=== PATIENT | female | born 1955 | race Caucasian/White ===

== ENCOUNTER 2025-07-10 08:59 | Inpatient (IN) ==
--- NOTE | 2025-07-03 13:16 | Anesthesiology Consultation ---
Date of Service July 03, 2025 Assessment & Plan (1) Encounter for pre-operative examination: - Check BSG DOS - Infectious disease screening: Per assessment on 07/03/25- No known recent infectious disease contacts or current infectious disease symptoms. Chart Review Chart Review: Acceptable Risk for Surgery and Patient NOT seen in Pre Admission Testing History Surgery Operation Date: 07/10/25 08:00 Proposed Procedures p Right Transcarotid Artery Revascularization - Bebeto Foote MD Height/Weight Height: 5 ft 6 in Weight: 97.522 kg Allergies Allergy/AdvReac Type Severity Reaction Status Date / Time pollen extracts Allergy Unknown Sneezing Verified 07/03/25 12:03 No Known Drug Allergies Allergy Verified 07/03/25 12:03 Medications Home Medications Medication Instructions Recorded Confirmed Last Taken multivitamin (Daily Multiple 1 tab PO QAM 05/04/19 07/03/25 07/21/22 tablet) aspirin 81 mg tablet 81 mg PO HS 07/13/19 07/03/25 07/21/22 loratadine 10 mg tablet (Claritin) 10 mg PO DAILY PRN allergy 01/22/22 07/03/25 Unknown symptoms #90 tabs hydrocodone 5 mg-acetaminophen 325 1 tab PO TID PRN Pain 09/30/22 07/03/25 Unknown mg tablet fluticasone propionate 50 2 spray intranasal DAILY PRN 03/23/23 07/03/25 Unknown mcg/actuation nasal allergy symptoms #16 grams spray,suspension albuterol sulfate 90 mcg/actuation 1 puff inhalation .COMPLEX PRN 01/30/25 07/03/25 Unknown aerosol inhaler shortness of breath #18 grams sennosides 8.6 mg tablet (senna) 8.6 mg PO BID #60 tabs 01/30/25 07/03/25 Unknown simvastatin 20 mg tablet 20 mg PO HS #90 tabs 02/07/25 07/03/25 Unknown gabapentin 300 mg capsule 300 mg PO HS #90 caps 03/05/25 07/03/25 Unknown docusate sodium 100 mg capsule 100 mg PO BID #60 caps 05/28/25 07/03/25 Unknown (Colace) lisinopril 20 mg tablet 20 mg PO HS #90 tabs 06/18/25 07/03/25 Unknown clopidogrel 75 mg tablet (Plavix) 75 mg PO QAM 07/03/25 07/03/25 Unknown cyanocobalamin (vitamin B-12) 500 500 mcg PO QAM 07/03/25 07/03/25 Unknown mcg tablet (Vitamin B-12) fluticasone propionate 100 1 inh inhalation BID 07/03/25 07/03/25 Unknown mcg/actuation blister powder for inhalation primidone 50 mg tablet 100 mg PO BID essential tremors 07/03/25 07/03/25 Unknown vibegron 75 mg tablet (Gemtesa) 75 mg PO 1500 07/03/25 07/03/25 Unknown Past Medical History Medical History Anxiety Asthma "Well controlled" Benign essential tremor Carotid artery stenosis Chronic back pain Fibromyalgia Generalized arthritis Glaucoma No medications History of restless legs syndrome No current issues Hx of gastric ulcer (2021) Hx of irritable bowel syndrome "Resolved" No recent issues Hyperlipidemia Hypertension Nocturia Osteoarthritis Polycythemia Per records Pre-diabetes Prediabetes vs borderline DM per records Most recent A1C 6.2% 01/2025 Sleep apnea CPAP ("I do not wear is like I should") Urge and stress incontinence Past Family History Family History Father Cardiac disorder Myocardial infarction Hypertension Sister Ovarian cancer Breast cancer Brother Diabetes Arthritis Cardiac disorder Myocardial infarction Hypertension Mother Diabetes Kidney disease Breast cancer Sister Diabetes Sister Bladder cancer Brother Bile duct cancer Brother , d/t COVID Nov 2020 Dementia Brother Coronary heart disease S/P CABG (coronary artery bypass graft) Other Bladder carcinoma No family history of adverse response to anesthesia Past Surgical History Surgical History H/O esophagogastroduodenoscopy Hx of colonoscopy S/P epidural steroid injection Status post cholecystectomy Status post surgery Bile duct stone removal Status post tubal ligation Social History Smoking Status: Current every day smoker tobacco type: cigarettes Smoking cigarettes per day: 1 PPD (advised on policy) Do You Dip or Chew Tobacco: No Hx Alcohol Use: No Hx Substance Use: No substance use type: does not use Lab Results Anesthesia Preop Results Results Anesthesia Widget: WBC 6.36 K/ul (4.8-10.8) 06/20/25 Hgb 16.1 g/dl (12.0-16.0) H 06/20/25 Hct 47.5 % (37.0-47.0) H 06/20/25 Plt 171 K/uL (130-400) 06/20/25 Na 140 mmol/L (136-145) 06/20/25 K 4.2 mmol/L (3.5-5.1) 06/20/25 Cl 107 mmol/L (98-107) 06/20/25 CO2 28 mmol/L (21-32) 06/20/25 BUN 10 mg/dl (6-23) 06/20/25 Creat 0.67 mg/dl (0.6-1.2) 06/20/25 Glucose Level 108 mg/dl (70-99(Fasting)) H 06/20/25 Blood Type A Positive 06/20/25 Antibody Screen NEGATIVE 06/20/25 Testing Electrocardiogram Date: 06/20/25 NSR at 73bpm. "Normal ECG" Chest X-Ray Date: 06/20/25 Findings: + NAD Other Testing Neck CTA Date: 05/22/25 IMPRESSION: Motion limited exam. 1. 90% narrowing proximal right ICA. 2. Less than 50% narrowing proximal left ICA. 3. Left submandibular finding, likely enlarged lymph node. At a minimum, suggest follow-up focused ultrasound for further characterization. If there is history of primary malignancy, further workup could be considered as clinically indicated. (Finding forwarded/flagged to ordering provider/Dr. Foote per workload communication note; PCP made aware additionally and PCP f/u at their discretion)
--- NOTE | 2025-07-09 14:48 | History & Physical Report ---
Date of Service July 09, 2025 Assessment & Plan (1) Stenosis of right carotid artery: Plan: Patient admitted for a right tcar. I have discussed the risks options and benefits of the procedure with the patient. The patient understands the risks options and benefits and agrees to the procedure. History of Present Illness Chief Complaint: Right carotid stenosis Primary Care Provider: Kaylyn Edmondson, DO I had the pleasure of seeing Penelope today for evaluation of her carotid disease. As you know she is a 70-year-old female who was having a thumping sound in her right ear. She subsequently had an ultrasound of her carotids which showed a greater than 70% narrowing of her right internal carotid artery. She denies any symptoms of cerebrovascular sufficiency. She denies any symptoms of TIAs or CVAs. She also denies any amaurosis fugax. She does have a history of heart disease hypertension diabetes. She is a smoker of 40 years of 1 pack a day. Allergies Allergy/AdvReac Type Severity Reaction Status Date / Time pollen extracts Allergy Unknown Sneezing Verified 07/03/25 12:03 No Known Drug Allergies Allergy Verified 07/03/25 12:03 Home Medications Medication Instructions Recorded Confirmed Type multivitamin (Daily Multiple 1 tab PO QAM 05/04/19 07/03/25 History tablet) aspirin 81 mg tablet 81 mg PO HS 07/13/19 07/03/25 History loratadine 10 mg tablet (Claritin) 10 mg PO DAILY PRN allergy 01/22/22 07/03/25 Rx symptoms #90 tabs hydrocodone 5 mg-acetaminophen 325 1 tab PO TID PRN Pain 09/30/22 07/03/25 History mg tablet fluticasone propionate 50 2 spray intranasal DAILY PRN 03/23/23 07/03/25 Rx mcg/actuation nasal allergy symptoms #16 grams spray,suspension albuterol sulfate 90 mcg/actuation 1 puff inhalation .COMPLEX PRN 01/30/25 07/03/25 Rx aerosol inhaler shortness of breath #18 grams sennosides 8.6 mg tablet (senna) 8.6 mg PO BID #60 tabs 01/30/25 07/03/25 Rx simvastatin 20 mg tablet 20 mg PO HS #90 tabs 02/07/25 07/03/25 Rx gabapentin 300 mg capsule 300 mg PO HS #90 caps 03/05/25 07/03/25 Rx docusate sodium 100 mg capsule 100 mg PO BID #60 caps 05/28/25 07/03/25 Rx (Colace) lisinopril 20 mg tablet 20 mg PO HS #90 tabs 06/18/25 07/03/25 Rx clopidogrel 75 mg tablet (Plavix) 75 mg PO QAM 07/03/25 07/03/25 History cyanocobalamin (vitamin B-12) 500 500 mcg PO QAM 07/03/25 07/03/25 History mcg tablet (Vitamin B-12) fluticasone propionate 100 1 inh inhalation BID 07/03/25 07/03/25 History mcg/actuation blister powder for inhalation primidone 50 mg tablet 100 mg PO BID essential tremors 07/03/25 07/03/25 History vibegron 75 mg tablet (Gemtesa) 75 mg PO 1500 07/03/25 07/03/25 History Past Med/Surg History Problem List (Updated 07/09/25 @ 14:47 by Bebeto Foote MD) Stenosis of right carotid artery Encounter for pre-operative examination Mixed action and resting tremor Parkinsonism Asthma Nocturia Right knee DJD Left knee DJD GERD (gastroesophageal reflux disease) Lumbar facet joint syndrome Lumbar spondylosis Diabetes borderline - no meds at present time Allergic rhinitis Anxiety Benign essential tremor Fibromyalgia Generalized arthritis Glaucoma Hyperlipidemia Hypertension Restless leg syndrome not a problem any longer Sleep apnea cpap Urge and stress incontinence IBS (irritable bowel syndrome) no current issue Medical History Carotid artery stenosis Polycythemia Per records Pre-diabetes Prediabetes vs borderline DM per records Most recent A1C 6.2% 01/2025 Nocturia Urge and stress incontinence Sleep apnea CPAP ("I do not wear is like I should") History of restless legs syndrome No current issues Hx of irritable bowel syndrome "Resolved" No recent issues Hypertension Hyperlipidemia Glaucoma No medications Chronic back pain Osteoarthritis Generalized arthritis Fibromyalgia Benign essential tremor Asthma "Well controlled" Anxiety Hx of gastric ulcer (2021) Surgical History S/P epidural steroid injection H/O esophagogastroduodenoscopy Hx of colonoscopy Status post tubal ligation Status post cholecystectomy Status post surgery Bile duct stone removal Family History Father Cardiac disorder Myocardial infarction Hypertension Sister Ovarian cancer Breast cancer Brother Diabetes Arthritis Cardiac disorder Myocardial infarction Hypertension Mother Diabetes Kidney disease Breast cancer Sister Diabetes Sister Bladder cancer Brother Bile duct cancer Brother , d/t COVID Nov 2020 Dementia Brother Coronary heart disease S/P CABG (coronary artery bypass graft) Other Bladder carcinoma No family history of adverse response to anesthesia Social History Smoking Status: Current every day smoker Tobacco Type: Cigarettes Age Started Using Tobacco: 28; packs per day: 1; Cigarettes Per Day: 1 PPD (advised on policy); Second Hand Exposure: No; Do You Dip or Chew Tobacco: No; Tobacco Cessation Education Requested by Patient: No Hx Alcohol Use: No Hx Substance Use: No Preferred Language: Chinese Communication Ability: Effective Visual Impairment: No Limitations Hearing Ability: Normal Manager Shop Required: No Beliefs That Will Affect Care: None marital status: Single Current Living Situation: Family Current Living Situation Comment: has a son at home (works away) current occupational status: retired How many Children do You have: 2 Other Information That Helps Us Care for You: No Feels Safe at Home: Yes Safety Concerns: Feels Safe At This Time Childhood Exposure to Second-Hand Smoke: No Diet: regular Diet Comment: Regular caffeine: Yes (1 cup coffee in the morning) during the past year weight has: remained stable Dental Care, Regularly: No Physical Activity Frequency: Does not Exercise Physical Activity Frequency Comment: BACK PAIN Seatbelt Use: always Sunscreen Use: Yes Assistive Devices: Cane, CPAP, Denture - Upper and Glasses Assistive Devices Comment: cane prn - no teeth on bottom Review of Systems All systems reviewed & are unremarkable except as noted in HPI & below Physical Exam Physical Exam: Physical exam she is awake alert and oriented x 3. She does have a significant intention tremor. Her blood pressure is 120/66 on the left and 122/72 on the right. She is in no apparent distress. Her radial and carotids are +2 bilaterally. Cannot appreciate carotid bruits. Her lungs have distant breath sounds. Heart irregular rate rhythm. Radials and carotids are +2 bilaterally. Abdominal exam benign cannot appreciate an aortic pulsation due to body habitus. Femorals are +2 bilaterally. Pedal's are +1 bilaterally. Her capillary refill is normal. Neurologic exam is intact.
[2025-07-10] MEDS: LR 15ML/HR IV SCH (09:58)
[2025-07-10] MEDS ORDERED: PHENYLEPHRINE HCL 25 MG/250 ML NSS IV ONE (10:02)
[2025-07-10] MEDS ORDERED: PROPOFOL IV EMULSION 10 MG/ML 20 ML VIAL IV ONE (10:02)
[2025-07-10] MEDS ORDERED: MIDAZOLAM HCL 1 MG/ML 2ML VIAL ONE (10:02)
[2025-07-10] MEDS ORDERED: ROCURONIUM BROMIDE 10 MG/ML 5 ML VIAL IV ONE ×2 (10:02→11:29)
[2025-07-10] MEDS ORDERED: LIDOCAINE 2% 20 MG/ML 5 ML SYR IV ONE (10:02)
[2025-07-10] MEDS ORDERED: PHENYLEPHRINE HCL 10 MG/ML VIAL ONE (10:02)
[2025-07-10] MEDS ORDERED: GLYCOPYRROLATE 0.2 MG/ML VIAL ONE (10:02)
[2025-07-10] MEDS ORDERED: HEPARIN SOD (PORCINE) 1000 UNIT/ML ONE (10:03)
--- NOTE | 2025-07-10 10:03 | History & Physical Bridge Note ---
Date of Service July 10, 2025 History & Physical Bridge Note I have examined the patient, reviewed the History & Physical and in the interval since the performance of the History & Physical I have noted the following changes of clinical significance: no changes noted
[2025-07-10] MEDS: ASPIRIN 81 MG CHEW PO STA (10:19)
[2025-07-10] MEDS ORDERED: ONDANSETRON INJ 2 MG/ML 2 ML VIAL IV PRN (10:23)
[2025-07-10] MEDS ORDERED: ATROPINE SULFATE 0.1 MG/ML 10ML SYR IV PRN (10:23)
[2025-07-10] MEDS ORDERED: ESMOLOL HCL INJ 10 MG/ML 10ML VIAL IV ONE ×2 (10:44→12:25)
[2025-07-10] MEDS ORDERED: PHENYLEPHRINE 100MCG/ML 5ML SYR ONE (10:46)
[2025-07-10] MEDS: CEFAZOLIN 2,000 MG/15 ML SYR IV SCH ×2 (11:06)
[2025-07-10] MEDS: ceFAZolin 330 MG/ML 1 GM VIAL ONE (11:47)
[2025-07-10] MEDS ORDERED: SUGAMMADEX SODIUM 200 MG/2 ML VIAL IV ONE (12:33)
[2025-07-10] MEDS: VISIPAQUE IV ONE (12:34)
[2025-07-10] MEDS: THROMBIN FOR SOLN 20000 UNIT KIT ONE (12:35)
[2025-07-10] MEDS: GELATIN SPONGE SZ 100 ONE (12:35)
[2025-07-10] MEDS: SURGICEL ABSORB HEMOSTAT 2IN X 14IN TOP ONE (12:37)
--- NOTE | 2025-07-10 12:40 | Post Operative Brief Note ---
Immediate Post Op Note Date of Surgery July 10, 2025 Pre & Post Diagnosis Operation Date: 07/10/25 10:30 Pre-Op Diagnosis: Stenosis of Right Carotid Artery Post-Op Diagnosis: Stenosis of Right Carotid Artery I identified the patient and participated in the time-out.: Yes Procedure Operation Date: 07/10/25 10:30 Actual Procedures p Right Transcarotid Artery Revascularization, Ultrasound Localization of left common Femoral Vein(Right) - Bebeto Foote MD Surgeon Bebeto Foote MD Wind Operations Supervisor MD Kelley LeeMinarchick,PAC Estimated Blood Loss 30 Findings Consistent with Post-Op Diagnosis Anesthesia Type General Complications none Disposition Accompanied Patient To Recovery: No Disposition: Recovery Room
[2025-07-10] MEDS: ARISTA ABSORBABLE HEMOSTAT 3GM TOP ONE (12:42)
[2025-07-10] MEDS: BUPIVACAINE/EPINEPHRINE 0.5% MPF 1:200,000 30 ML VIAL ONE (13:01)
--- NOTE | 2025-07-10 13:12 | Operative Report ---
Post Operative Report Pre & Post Diagnosis Operation Date: 07/10/25 10:30 Pre-Op Diagnosis: Asymptomatic high grade stenosis of right carotid artery Post-Op Diagnosis: Asymptomatic high grade stenosis of right carotid artery I identified the patient and participated in the time-out.: Yes Procedure Operation Date: 07/10/25 10:30 Actual Procedures p Right Transcarotid Artery Revascularization, Ultrasound Localization of Femoral Vein(Right) - Bebeto Foote MD Surgeon Bebeto Foote MD Material Expediter MD Opal Reaves,PAC Estimated Blood Loss 30 Findings Consistent with Post-Op Diagnosis Right internal carotid artery with significant tortuosity and high grade stenosis. Area of stenosis significantly improved after balloon angioplasty and stenting. Completion angiogram in multiple views showed no areas of dissection or flow limiting stenosis. Patient was moving all extremities to command at conclusion of the case. Specimens None Anesthesia Type General Complications None immediately evident Disposition Accompanied Patient To Recovery: Yes Indications 70 year old female with asymptomatic high grade stenosis of the right internal carotid artery. Given the severity of the stenosis, we offered her revascularization. After discussion of risks and benefits, patient provided informed consent to a right transcarotid artery revascularization (TCAR). Description of Procedure The patient was brought to the operating room, where lines were placed and general anesthesia was accomplished by anesthesia team. A shoulder roll was placed and the neck was rotated towards the left side of the patient. The right neck and bilateral groins were prepped and patient was draped in the usual sterile fashion. A timeout was performed identifying the correct patient by name, procedure, and location of procedure and all were in agreement. A 4cm transverse incision was made between the sternal and clavicular heads of the sternocleidomastoid muscle. The muscle heads were retracted to each side and the carotid sheath was identified. Using blunt dissection, the carotid sheath was opened and 3cm of common carotid artery (CCA) were isolated. Umbilical tape was placed around the proximal CCA under direct visualization. A 5-0 prolene U- stitch was pre-placed in the anterior wall of the CCA to facilitate hemostasis after removal of the arterial sheath at completion of the procedure. The patient was given 9,000 units of IV heparin. The contralateral (left) common femoral vein was accessed under ultrasound guidance using a micropuncture needle, and a wire and sheath were placed using modified Seldinger technique. The venous return sheath was advanced into the common femoral vein over the 0.035" wire. Blood was aspirated from the flow line and the sheath was flushed with heparinized saline.The sheath was secured to the patient's skin with a 2-0 silk stitch to maintain position in the vessel. We then turned our attention back to the neck. ACT was confirmed to be above 250 seconds prior to arterial access. A 4-Italian non-stiffened micropuncture set was used to puncture the artery with a 21G needle through the pre-placed U-stitch while holding gentle traction on the umbilical tape to stabilize the CCA within the incision. The micropuncture wire was advanced 3-4cm into the CCA and the 21G needle removed. The micropuncture sheath was advanced 3cm into the CCA and the wire and dilator were removed. A cerebral angiogram was obtained after ensuring there were no air bubbles in the system. The J-tipped guidewire was inserted and the micropuncture sheath became dislodged. We tied down the preplaced U-stitch and this was hemostatic. We then placed a new 5-0 Prolene U-stitch in another portion of the anterior wall of the CCA. A 4-Italian non-stiffened micropuncture set was used to puncture the artery with a 21G needle through the pre-placed U- stitch while holding gentle traction on the umbilical tape to stabilize the CCA within the incision. The micropuncture wire was advanced 3-4cm into the CCA and the 21G needle removed. The micropuncture sheath was advanced 3cm into the CCA and the wire and dilator were removed. A cerebral angiogram was obtained after ensuring there were no air bubbles in the system. The J-tipped guidewire was inserted and we stopped short of the lesion at the level of the common carotid artery. After micropuncture sheath removal, the transcarotid arterial sheath was advanced to the 2.5cm marker and the 0.035" wire and dilator were removed. Arterial sheath position was assessed under fluoroscopy. The arterial sheath was sutured to the patient at two sites. The Flow Controller was connected to the transcarotid arterial sheath, prepared by passively allowing arterial blood to backfill the line and then it was connected to the venous return sheath. The CCA was clamped proximally with a Ilya tourniquet to ensure active flow reversal. Heparinized saline was deli blaire into the venous flow line to confirm adequate flow reversal. A right carotid angiogram was obtained. A TCAR timeout was performed, heart rate was >70bpm and systolic BP was >140mmHg. Patient had been pretreated with glycopyrrolate and atropine was available. The lesion was crossed with an 0.014" guidewire and pre-dilation balloon angioplasty was performed with a 5.5x25mm [employer] rapid exchange balloon to 12 atmospheres for about 3 seconds. A 9- 7x30mm ENROUTE transcarotid stent was placed. After allowing at least 2 minutes of continued flow reversal, a completion angiogram was performed showing appropriate stent position with good wall apposition.There was still moderate narrowing at the mid portion of the stent. Post-dilation balloon angioplasty was performed with a 5.5x25mm [employer] rapid exchange balloon to 14 atmospheres. At TCAR case completion, antegrade flow was restored by releasing the tourniquet on the CCA and closing the stopcocks to the flow lines. The total clamp time was 15 minutes. The transcarotid arterial sheath was removed and the pre-placed suture was tied. 25mg of protamine were given. A repeat ACT was obtained and was <150 seconds. The venous return sheath was removed and hemostasis achieved with manual compression. The neck incision was irrigated with antibiotic solution and hemostasis obtained with a combination of electrocautery, clips and ties taking care not to injure any of the surrounding nerves and vessels. 30cc of 0.25% marcaine with epinephrine were used for local anesthesia around skin edges. The platysma was approximated with 3-0 Vicryl running suture and the skin was closed with 4-0 running Vicryl suture and covered with Dermabond. The patient tolerated the procedure well and was extubated in the operating room. She was moving all four extremities to command prior to transfer to the recovery room. All counts were correct at the end of the procedure. Fluoroscopy time was 3.8 minutes, radiation dose was 39 mGy and 18 cc of contrast were used. Dr. Foote was present and participated in all critical parts of the procedure. I attest to the content of the Intraoperative Record and any orders documented therein. Any exceptions are noted below.
[2025-07-10] MEDS ORDERED: PHENYLEPHRINE/NSS 25 MG/250 ML BAG IV PRN ×2 (13:34→14:45)
--- NOTE | 2025-07-10 14:28 | Anesthesiology Progress Note ---
Date of Service July 10, 2025 Anesthesia Post Procedure Vital Signs Vital Signs: Temp Pulse Pulse Resp BP BP BP 07/10/25 14:20 58 L 12 105/43 L 111/58 L 07/10/25 14:10 36.4 C L 61 15 111/45 L 105/48 L 07/10/25 14:00 63 14 110/46 L 108/59 L 07/10/25 13:50 64 18 106/43 L 115/58 L 07/10/25 13:40 67 20 110/43 L 111/60 07/10/25 13:30 72 16 108/72 111/46 L 07/10/25 13:22 36.0 C L 76 14 93/45 L 106/46 L 07/10/25 09:26 07/10/25 09:26 37 C 70 20 183/107 H 168/91 H Pulse Ox O2 Del Method O2 Flow Rate 07/10/25 14:20 95 Nasal Cannula 2 07/10/25 14:10 94 Nasal Cannula 2 07/10/25 14:00 94 Nasal Cannula 2 07/10/25 13:50 93 Nasal Cannula 2 07/10/25 13:40 96 Nasal Cannula 2 07/10/25 13:30 95 Nasal Cannula 2 07/10/25 13:22 94 Nasal Cannula 3 07/10/25 09:26 Room Air 07/10/25 09:26 93 Room Air Pain Intensity Bilateral Lower Back: Pain Intensity: 7 Right Neck: Pain Intensity: 4 Transfer of Care Handoff Completed per policy Notes Mental Status: alert / awake / arousable and participated in evaluation Nausea / Vomiting: adequately controlled Pain: adequately controlled Airway Patency, RR, SpO2: stable & adequate BP & HR: stable & adequate Hydration State: stable & adequate Anesthetic Complications: no major complications apparent and Pt Satisfied with anesthetic care
[2025-07-10] MEDS ORDERED: STAT IV Infusion **Titration per Protocol STA (14:45)
[2025-07-10] MEDS ORDERED: ALBUTEROL HFA 8 GM INHALER INH PRN (14:45)
[2025-07-10] MEDS: ASPIRIN 81 MG CHEW ONE (15:05)
[2025-07-10] MEDS: HYDROCODONE/ACETAMOPHEN 5/325MG TAB PO PRN (15:20)
[2025-07-10] MEDS: LACTATED RINGER'S 1,000 ML IV SCH (15:22)
--- NOTE | 2025-07-10 15:32 | Critical Care Consultation ---
Date of Consultation July 10, 2025 Assessment & Plan (1) Stenosis of right carotid artery: (2) Mixed action and resting tremor: (3) Parkinsonism: (4) Asthma: (5) GERD (gastroesophageal reflux disease): (6) Diabetes: (7) Generalized arthritis: (8) Hyperlipidemia: (9) Hypertension: (10) Sleep apnea: Plan Pt is a 70 yo female with PMH of HTN, HLD, DIAMOND, pre-diabetes, polycythemia, OA, tobacco user with 40 pack yr history, and hx of gastric ulcer who admitted ICU s/p R TCAR by Dr. Foote on 07/10/25. Pt is currently hemodynamically stable. Patent will remain ICU for continued evaluation and management of right carotid stenosis s/p right TCAR requiring vasoactive medications for maintain BP. --Neuro Currently neurologically intact Neurovascular checks q4h --Cardiovascular S/p R TCAR 07/10/25 Pt with HR ranging from 50-55 post procedure Maintain SBP > 100 Phenylephrine 0.1 or 0.5 prn for SBP <100 Resume po clopidogrel 75mg and aspirin 81 mg in AM Hx of HTN and HLD Continue po lisinopril 20mg qhs Continue po simvastatin 20mg qhs --Respiratory No prior oxygen demand at home Currently using 2L via NC, wean as tolerated for O2 sat Albuterol inh q2h prn --GI hx gastric ulcer No c/o of GI disturbance Ondansetron IV prn for nausea --Renal/electrolytes Baseline Cr is 0.67 with eGFR of 92.81 Continue mIVF LR at 125 mls Monitor I/Os Monitor electrolytes and kidney function with AM BMP -- Hx of urge and stress incontinence Using purewick Continue po Vibegron 75mg qd --Heme Hx of polycythemia Baseline hbg 16.1, hct 47.5 Will monitor with AM CBC --Endo Hx of prediabetes, not on meds BSG ACHS Consider basal insulin for consistent BSG >250 --MSK Hx of general OA, chronic LBP Continue po hydrocodone/acetaminophen 5/325 TID Continue po Gabapentin 300mg qhs --ID Received IV cefazolin 2g preop Continue IV cefazolin 2g q8h x 2 doses No current signs of infection Dispo: ICU Diet: full liquid, heart healthy Code: Full DVT prophylaxis: holding due to recent procedure Supervising Physician Co-Signing Physician Notes Dr. Campos was resident physician during care of patient. I separately evaluated patient for francisco portions of the history and the exam. I was present during the critical portion of medical decision making, and I discussed the case with the resident. I generally agree with the findings and plan. History of Present Illness Reason for Consultation: s/p TCAR Requesting Physician: Dr. Foote Attending Physician: Bebeto Foote MD History of Present Illness Pt is a 70 yo female with PMH of HTN, HLD, DIAMOND, pre-diabetes, polycythemia, OA, tobacco user with 40 pack yr history, and hx of gastric ulcer who admitted ICU s/p R TCAR by Dr. Foote on 07/10/25. Pt was seen in office in April 2025 for complaint of "thumping at her right ear". She was found to have a > 70% blockage of the right internal carotid artery via US. Pt denied symptoms cerebrovascular insufficiency, TIA, CVA or amaurosis fugax. Pt was recommended to have CT angiogram, which showed 90% blockage at R internal carotid. At that time, pt elected to undergo R TCAR. Post procedure, pt reports right sided neck pain near incision site and sore throat. Pt also c/o mild headache. Pt denies CP, SOB, dizziness, abdominal pain, N/V, numbness/tingling at extremities, weakness at extremities. Pt's son sitting at bedside. Allergies Allergy/AdvReac Type Severity Reaction Status Date / Time pollen extracts Allergy Unknown Sneezing Verified 07/10/25 09:18 No Known Drug Allergies Allergy Verified 07/10/25 09:18 Home Medications Medication Instructions Recorded Confirmed Type multivitamin (Daily Multiple 1 tab PO QAM 05/04/19 07/10/25 History tablet) aspirin 81 mg tablet 81 mg PO HS 07/13/19 07/10/25 History loratadine 10 mg tablet (Claritin) 10 mg PO DAILY PRN allergy 01/22/22 07/10/25 Rx symptoms #90 tabs hydrocodone 5 mg-acetaminophen 325 1 tab PO TID PRN Pain 09/30/22 07/10/25 History mg tablet fluticasone propionate 50 2 spray intranasal DAILY PRN 03/23/23 07/10/25 Rx mcg/actuation nasal allergy symptoms #16 grams spray,suspension albuterol sulfate 90 mcg/actuation 1 puff inhalation .COMPLEX PRN 01/30/25 07/10/25 Rx aerosol inhaler shortness of breath #18 grams sennosides 8.6 mg tablet (senna) 8.6 mg PO BID #60 tabs 01/30/25 07/10/25 Rx simvastatin 20 mg tablet 20 mg PO HS #90 tabs 02/07/25 07/10/25 Rx gabapentin 300 mg capsule 300 mg PO HS #90 caps 03/05/25 07/10/25 Rx docusate sodium 100 mg capsule 100 mg PO BID #60 caps 05/28/25 07/10/25 Rx (Colace) lisinopril 20 mg tablet 20 mg PO HS #90 tabs 06/18/25 07/10/25 Rx clopidogrel 75 mg tablet (Plavix) 75 mg PO QAM 07/03/25 07/10/25 History cyanocobalamin (vitamin B-12) 500 500 mcg PO QAM 07/03/25 07/10/25 History mcg tablet (Vitamin B-12) fluticasone propionate 100 1 inh inhalation BID 07/03/25 07/10/25 History mcg/actuation blister powder for inhalation primidone 50 mg tablet 100 mg PO BID essential tremors 07/03/25 07/10/25 History vibegron 75 mg tablet (Gemtesa) 75 mg PO 1500 07/03/25 07/10/25 History Patient History Medical History Carotid artery stenosis Polycythemia Per records Pre-diabetes Prediabetes vs borderline DM per records Most recent A1C 6.2% 01/2025 Nocturia Urge and stress incontinence Sleep apnea CPAP ("I do not wear is like I should") History of restless legs syndrome No current issues Hx of irritable bowel syndrome "Resolved" No recent issues Hypertension Hyperlipidemia Glaucoma No medications Chronic back pain Osteoarthritis Generalized arthritis Fibromyalgia Benign essential tremor Asthma "Well controlled" Anxiety Hx of gastric ulcer (2021) Surgical History S/P epidural steroid injection H/O esophagogastroduodenoscopy Hx of colonoscopy Status post tubal ligation Status post cholecystectomy Status post surgery Bile duct stone removal Family History Father Cardiac disorder Myocardial infarction Hypertension Sister Ovarian cancer Breast cancer Brother Diabetes Arthritis Cardiac disorder Myocardial infarction Hypertension Mother Diabetes Kidney disease Breast cancer Sister Diabetes Sister Bladder cancer Brother Bile duct cancer Brother , d/t COVID Nov 2020 Dementia Brother Coronary heart disease S/P CABG (coronary artery bypass graft) Other Bladder carcinoma No family history of adverse response to anesthesia Social History Smoking Status: Current every day smoker Tobacco Type: Cigarettes Age Started Using Tobacco: 28; packs per day: 1; Cigarettes Per Day: 1 ppd; Second Hand Exposure: No; Do You Dip or Chew Tobacco: No; Hx Alcohol Use: No Hx Substance Use: No Preferred Language: Vietnamese Communication Ability: Effective Visual Impairment: No Limitations Hearing Ability: Normal Director Of Primary Care Required: No Beliefs That Will Affect Care: None marital status: Single Current Living Situation: Family Current Living Situation Comment: lives with son current occupational status: retired How many Children do You have: 2 Feels Safe at Home: Yes Childhood Exposure to Second-Hand Smoke: No Diet: regular Diet Comment: Regular caffeine: Yes (1 cup coffee in the morning) during the past year weight has: remained stable Dental Care, Regularly: No Physical Activity Frequency: Does not Exercise Physical Activity Frequency Comment: BACK PAIN Seatbelt Use: always Sunscreen Use: Yes Assistive Devices: Cane Review of Systems Review of Systems: As per HPI Physical Exam Physical Exam: Gen: NAD HENT: Normocephalic, atraumatic. External ear without deformities. Trachea midline, no thyromegaly. Incision at right lateral neck covered by bandage- clean,dry. Cold pack in place. Cardio: RRR, no murmurs or clicks. Pulses 2+ radial and pedal bilaterally Resp: CTAB, Equal bilateral chest rise, no increased work of breathing. Supplemental O2 at 2L via NC GI: Non distended, soft, non tender, normoactive bowel sounds : Purewick in place MSK: Moving all 4 extremities independently Skin: Dry, of normal skin tone, no rashes noted Neuro: A& O x 3, normal affect Results & Data Results & Data Vital Signs (Past 12 Hours) Vital Signs Temp Pulse Pulse Resp BP BP BP 07/10/25 14:20 58 L 12 105/43 L 111/58 L 07/10/25 14:10 36.4 C L 61 15 111/45 L 105/48 L 07/10/25 14:00 63 14 110/46 L 108/59 L 07/10/25 13:50 64 18 106/43 L 115/58 L 07/10/25 13:40 67 20 110/43 L 111/60 07/10/25 13:30 72 16 108/72 111/46 L 07/10/25 13:22 36.0 C L 76 14 93/45 L 106/46 L 07/10/25 09:26 07/10/25 09:26 37 C 70 20 183/107 H 168/91 H Pulse Ox O2 Del Method O2 Flow Rate 07/10/25 14:20 95 Nasal Cannula 2 07/10/25 14:10 94 Nasal Cannula 2 07/10/25 14:00 94 Nasal Cannula 2 07/10/25 13:50 93 Nasal Cannula 2 07/10/25 13:40 96 Nasal Cannula 2 07/10/25 13:30 95 Nasal Cannula 2 07/10/25 13:22 94 Nasal Cannula 3 07/10/25 09:26 Room Air 07/10/25 09:26 93 Room Air Resident Activity Tracking Resident Involvement: Resident Care Provided Care Provided: Adult Hospital Medicine
[2025-07-10] MEDS: VIBEGRON 75 MG TAB PO SCH (15:35)
[2025-07-10] MEDS: MoRPHine SULFATE 2 MG/ML CARP IV PRN (18:26)
[2025-07-10] MEDS: ASPIRIN 81 MG ECTAB PO SCH (19:58)
[2025-07-10] MEDS: PRIMIDONE 50 MG TAB PO SCH (19:58)
[2025-07-10] MEDS: DOCUSATE SODIUM 100 MG CAP PO SCH (19:59)
[2025-07-10] MEDS: SIMVASTATIN 20 MG TAB PO SCH (19:59)
[2025-07-10] MEDS: SENNA 8.6 MG TAB PO SCH (19:59)
[2025-07-10] MEDS: GABAPENTIN 300 MG CAP PO SCH (19:59)
[2025-07-11] MEDS ORDERED: CEFAZOLIN 2,000 MG/15 ML SYR IV SCH (06:00)
--- NOTE | 2025-07-11 06:43 | Critical Care Progress Note ---
Date of Service July 11, 2025 Assessment & Plan (1) Stenosis of right carotid artery: (2) Asthma: (3) GERD (gastroesophageal reflux disease): (4) Diabetes: (5) Generalized arthritis: (6) Hyperlipidemia: (7) Hypertension: (8) Sleep apnea: Plan Pt is a 70 yo female with PMH of HTN, HLD, DIAMOND, pre-diabetes, polycythemia, OA, tobacco user with 40 pack yr history, and hx of gastric ulcer who admitted ICU s/p R TCAR by Dr. Foote on 07/10/25. Pt is currently hemodynamically stable. Patent admitted to ICU for continued evaluation and management of right carotid stenosis s/p right TCAR requiring vasoactive medications for maintain BP. Pt is stable and critical care team is signing off. --Neuro Currently neurologically intact Neurovascular checks q4h --Cardiovascular S/p R TCAR 07/10/25 Maintain SBP > 100 Resume po clopidogrel 75mg and aspirin 81 mg in AM Hx of HTN and HLD Continue po lisinopril 20mg qhs Continue po simvastatin 20mg qhs --Respiratory Hx of mild intermittent asthma and DIAMOND, No prior oxygen demand at home Currently using 1-3L via NC, wean as tolerated for O2 sat Consider resuming CPAP Albuterol inh q2h prn --GI hx gastric ulcer No c/o of GI disturbance Ondansetron IV prn for nausea --Renal/electrolytes Baseline Cr is 0.67 with eGFR of 92.81 Monitor I/Os -- Hx of urge and stress incontinence Using purewick Continue po Vibegron 75mg qd --Heme Hx of polycythemia Baseline hbg 16.1, hct 47.5 --Endo Hx of prediabetes, not on meds BSG ACHS Consider basal insulin for consistent BSG >250 --MSK Hx of general OA, chronic LBP Generalized weakness noted this morning Consider PT/OT eval prior to DC OOB with nursing assist Continue po hydrocodone/acetaminophen 5/325 TID Continue po Gabapentin 300mg qhs --ID Received IV cefazolin 2g preop Completed IV cefazolin 2g post op No current signs of infection Dispo: ICU Diet: heart healthy Code: Full DVT prophylaxis: holding due to recent procedure Admission and Anticipated Discharge Date Admission Date: July 10, 2025 Supervising Physician Co-Signing Physician Notes Dr. Campos was resident physician during care of patient. I separately evaluated patient for francisco portions of the history and the exam. I was present during the critical portion of medical decision making, and I discussed the case with the resident. I generally agree with the findings and plan. Patient requiring small amount of supplemental oxygen, this is not something she utilizes at home. She also has reported to use CPAP but she did not use this last night and that opted for supplemental oxygen. Patient can use home CPAP. Critical care medicine will sign off at this time Subjective No acute events overnight. This morning, pt reports she is having 4/10 right sided neck pain and throat soreness. She reports she she feels hungry and would like to eat. She is not sure she will be able to swallow due to her throat pain. She denies CP, SOB, cough, headache, changes in vision/hearing, numbness/tingling at extremities or face, abdominal pain, nausea, or dysuria. Review of Systems Review of Systems: As per HPI Physical Exam Physical Exam: Gen: Pt is sleepy, but cooperative. NAD HENT: Normocephalic, atraumatic. External ear without deformities. Trachea midline, no thyromegaly. Cardio: RRR, no murmurs or clicks. Pulses 2+ radial and pedal bilaterally. Trace ankle edema, nonpitting Resp: Scattered wheezing, Equal bilateral chest rise, no increased work of breathing. Supplemental O2 at 1L via NC GI: Non distended, soft, non tender, normoactive bowel sounds : Purewick in place MSK: Moving all 4 extremities independently Skin: Dry, of normal skin tone, no rashes noted. Incision at right lateral neck is clean and dry. Swelling and bruising irais-incision. Neuro: A& O x 3, normal affect. CN II-VII in tact. Results & Data Results & Data Vital Signs (Past 12 Hours) Vital Signs Temp Pulse Resp BP Pulse Ox O2 Del Method O2 Flow Rate 07/11/25 05:32 114/48 L 07/11/25 05:32 114/48 L 07/11/25 05:24 82 21 91 07/11/25 04:27 76 17 91 07/11/25 03:32 127/45 L 07/11/25 03:27 80 17 90 07/11/25 03:03 74 17 90 07/11/25 02:32 131/63 08/13/25 02:32 131/63 07/11/25 02:27 83 19 91 07/11/25 02:21 78 21 92 07/11/25 01:34 152/57 H 07/11/25 01:24 80 95 07/11/25 01:03 78 19 93 07/11/25 00:12 61 22 94 07/11/25 00:00 68 07/10/25 23:41 36.6 C 07/10/25 23:39 67 21 96 07/10/25 23:32 127/46 L 07/10/25 23:32 127/46 L 07/10/25 23:09 60 23 96 07/10/25 23:06 61 20 94 07/10/25 22:33 118/64 07/10/25 22:33 118/64 07/10/25 22:33 118/64 07/10/25 22:33 59 L 20 94 07/10/25 22:00 58 L 18 94 07/10/25 21:00 59 L 20 93 07/10/25 20:18 63 16 96 07/10/25 20:13 36.9 C 07/10/25 19:33 130/58 L 07/10/25 19:33 130/58 L 07/10/25 19:30 59 L 19 94 07/10/25 19:15 Nasal Cannula 1 07/10/25 19:06 58 L 20 94 Resident Activity Tracking Resident Involvement: Resident Care Provided Care Provided: Adult Hospital Medicine
[2025-07-11] MEDS: CYANOCOBALAMIN (B-12) 500 MCG TABLET PO SCH (07:55)
[2025-07-11] MEDS: CLOPIDOGREL BISULFATE 75 MG TAB PO SCH (07:55)
[2025-07-11] MEDS: FLUTICASONE FUROATE 100MCG 14 PUFFS/INHALER INH SCH (07:56)
[2025-07-11] MEDS: MULTIVITAMIN TAB PO SCH (07:56)
--- NOTE | 2025-07-11 09:48 | Billing Data ---
Date of Service July 11, 2025 Coding Level of Care Code 03976 SUB INP/OBS CARE
--- NOTE | 2025-07-11 13:41 | Surgery Progress Note ---
Date of Service July 11, 2025 Assessment & Plan (1) Stenosis of right carotid artery: Plan: Patient POD 1 from a right tcar. She does have generalized weakness but no focal deficits. Will transfer to floor and start PT/OT. Admission and Anticipated Discharge Date Admission Date: July 10, 2025 Subjective Patient complains of pain in her throat with swallowing. She also complains of incisional pain. She denies any focal deficits but does claim of generalized weakness. Physical Exam Constitutional: WD/WN, vitals as above Neck: trachea midline Respiratory: normal respiratory effort; no respiratory distress Cardiovascular: Rate/Rhythm: regular rate and regular rhythm Skin: + incision (with moderate swelling) Neurologic: CN's II-XI intact bilaterally and moves all extremities Results & Data Vital Signs (Past 12 Hours) Vital Signs Pulse Pulse Resp BP BP BP Pulse Ox 07/11/25 12:16 81 113/47 L 110/52 L 07/11/25 12:00 79 07/11/25 10:30 79 22 91 07/11/25 09:32 103/62 07/11/25 08:32 106/50 L 07/11/25 08:21 81 25 H 89 L 07/11/25 08:00 94 H 18 88 L 07/11/25 08:00 07/11/25 07:42 120/48 L 07/11/25 07:38 85 26 H 91 07/11/25 07:02 82 20 89 L 07/11/25 05:32 114/48 L 07/11/25 05:32 114/48 L 07/11/25 05:24 82 21 91 07/11/25 04:27 76 17 91 07/11/25 03:32 127/45 L 07/11/25 03:27 80 17 90 07/11/25 03:03 74 17 90 07/11/25 02:32 131/63 07/11/25 02:32 131/63 07/11/25 02:27 83 19 91 07/11/25 02:21 78 21 92 O2 Del Method O2 Flow Rate 07/11/25 12:16 07/11/25 12:00 07/11/25 10:30 07/11/25 09:32 07/11/25 08:32 07/11/25 08:21 07/11/25 08:00 07/11/25 08:00 Nasal Cannula 3 07/11/25 07:42 07/11/25 07:38 07/11/25 07:02 07/11/25 05:32 07/11/25 05:32 07/11/25 05:24 07/11/25 04:27 07/11/25 03:32 07/11/25 03:27 07/11/25 03:03 07/11/25 02:32 07/11/25 02:32 07/11/25 02:27 07/11/25 02:21
[2025-07-12] MEDS: LORATADINE 10 MG TAB PO PRN (09:23)
[2025-07-12] MEDS: FLUTICASONE PROPIONATE NA SPR 16 GM BTL PRN (09:25)
--- NOTE | 2025-07-12 10:03 | Hospitalist Consultation ---
Date of Consultation July 12, 2025 Assessment & Plan (1) Stenosis of right carotid artery: (2) Respiratory insufficiency: (3) Asthma: (4) Sore throat: Plan #S/p right TCAR on 07/10/2022 Perioperative antibiotics, fluids, DVT PPx, and pain control per the primary team Added on MiraLAX for bowel regimen in the setting of opioid use Continue docusate sodium BID Continue Plavix + aspirin #Respiratory insufficiency | asthma | current everyday tobacco cigarette smoker Patient is not on supplemental oxygen at baseline, but does use a CPAP at night H/o tobacco cigarette use x 30 years; 1 PPD Last PFTs were on 05/26/2023 Mild restrictive ventilatory defect; suggestive of small airway disease; ?Bronchial asthma Patient continues to require supplemental oxygen now on POD #2 Suspect there may be a component of COPD in the setting of chronic tobacco use CXR ordered, pending CBC and BMP ordered, pending Added on DuoNeb PRN #Sore throat | pain with swollen Suspected secondary to intubation for surgery Menthol lozenges PRN #Diabetes Last A1c 6.2% on 01/30/2025 Not currently on diabetic medications at home Diet controlled T2DM diet BSG ACHS Added on hypoglycemia meds PRN Adjust regimen as needed #Chronic LBP Currently on gabapentin and Percocet May need to wean down on these medications as suspect they may be contributing to respiratory depression #History of urge/stress incontinence Continue vibegron External catheter (PureWick) #Parkinsonisms Continue primidone BID #Sleep apnea CPAP HS #HTN Continue lisinopril #HLD Continue simvastatin Thank you for allowing us to participate in the care of this patient, please reach out any questions or concerns; we will continue to follow. Supervising Physician Co-Signing Physician Notes Attending Attestation & Consult Note: Pt seen/examined, chart reviewed, care plan d/w RANJITH Rivas. I agree w/ the francisco components of his consult documentation. 70yo female with long-standing tobacco use with 40 pack year history, right carotid artery stenosis, Parkinsonism, asthma, diabetes, fibromyalgia, Hyperlipidemia, HTN, obstructive sleep apnea, and urge/stress incontinence. s/p right transcarotid artery revascularization with Dr. Foote on 07/10. Dr Foote consulted us due to persistent supplemental O2 requirement. During my assessment she was resting comfortably in bed watching TV. Indeed was on NC O2. She denied any dyspnea at rest or with walking to the bathroom. She mentioned she has NOT had her CPAP here during the hospital stay. She does feel congested in her lungs. Mild cough at times. PMH/PSH/allergies/meds/sochx - reviewed VSS, afebrile, o2 sats wnl with supplemental NC O2 exam - gen - NAD, lying comfortably in bed neck - no obvious JVD mouth - MMM heart - RRR, s1 s2 lungs - mild dry rales bases with scattered end-exp wheezes; no resp distress chest - incision R upper chest clean, well-approximated, no irais-incision cellulitis abd - soft NT BS+ ext - pulses b/l feet 2+; no edema b/l labs reviewed CXR reviewed - b/l lower lobe infiltrates - edema and/or atelectasis A/P: 1. acute post-op pulmonary insufficiency - atelectasis +/- asthma/COPD +/- ?pulm edema 2. DIAMOND on CPAP 3. R SERGE s/p TCAR by Dr Foote 4. current tobacco user 5. h/o asthma 6. HTN 7. DM -add scheduled duonebs QID -add flutter valve -add mucinex BID -schedule CPAP at bedtime; Dr Foote reports no contraindication to using CPAP at this time -consider dose of IV lasix -defer on steroids for now -wean O2 as tolerated reassess tomorrow Desmond Smith MD History of Present Illness Reason for Consultation: Respiratory insufficiency, s/p TCAR Requesting Physician: Bebeto Foote MD Attending Physician: Bebeto Foote MD History of Present Illness Mrs. Alfonso is a 70-year-old female with PMH of tobacco user with 40 pack year history, right carotid artery stenosis, Parkinsonisms, asthma, diabetes, fibromyalgia, HLD, HTN, sleep apnea, and urge/stress incontinence. She underwent a right transcarotid artery revascularization with Dr. Foote on 07/10. We were consulted for respiratory insufficiency. Patient seen at bedside. She is in no acute respiratory distress at this time. She does not use supplemental oxygen at home, but does use a CPAP at night. She denies SOB at rest or with exertion. Her main complaints at this time is that she has a mild headache, and she has throat pain whenever she swallows (which she rates a 1 or 2 out of 10); she believes this was secondary to being intubated for surgery. She also has a productive cough (clear sputum production). Overall, she reports she feels much better today when compared to the past 2 days in the hospital. She denies prior history of DVT/PE. Patient is a current everyday tobacco cigarette smoker; 1 PPD; 30-year pack history. She declines nicotine patch at this time. Her only other complaint is that she has not had a bowel movement since she came into the hospital, and believes it is due to the pain medications. ROS: Patient endorses headache, difficulty swallowing, throat pain, and productive cough (clear sputum production) Patient denies fever, chills, night sweats, dizziness/lightheadedness when standing, chest pain, SOB, YI, pleuritic CP, abdominal pain, N/V/D, swelling in the legs, or changes in urinary bowel habits. Allergies Allergy/AdvReac Type Severity Reaction Status Date / Time pollen extracts Allergy Unknown Sneezing Verified 07/10/25 09:18 No Known Drug Allergies Allergy Verified 07/10/25 09:18 Home Medications Medication Instructions Recorded Confirmed Type multivitamin (Daily Multiple 1 tab PO QAM 05/04/19 07/10/25 History tablet) aspirin 81 mg tablet 81 mg PO HS 07/13/19 07/10/25 History loratadine 10 mg tablet (Claritin) 10 mg PO DAILY PRN allergy 01/22/22 07/10/25 Rx symptoms #90 tabs hydrocodone 5 mg-acetaminophen 325 1 tab PO TID PRN Pain 09/30/22 07/10/25 History mg tablet fluticasone propionate 50 2 spray intranasal DAILY PRN 03/23/23 07/10/25 Rx mcg/actuation nasal allergy symptoms #16 grams spray,suspension albuterol sulfate 90 mcg/actuation 1 puff inhalation .COMPLEX PRN 01/30/25 07/10/25 Rx aerosol inhaler shortness of breath #18 grams sennosides 8.6 mg tablet (senna) 8.6 mg PO BID #60 tabs 01/30/25 07/10/25 Rx simvastatin 20 mg tablet 20 mg PO HS #90 tabs 02/07/25 07/10/25 Rx gabapentin 300 mg capsule 300 mg PO HS #90 caps 03/05/25 07/10/25 Rx docusate sodium 100 mg capsule 100 mg PO BID #60 caps 05/28/25 07/10/25 Rx (Colace) lisinopril 20 mg tablet 20 mg PO HS #90 tabs 06/18/25 07/10/25 Rx clopidogrel 75 mg tablet (Plavix) 75 mg PO QAM 07/03/25 07/10/25 History cyanocobalamin (vitamin B-12) 500 500 mcg PO QAM 07/03/25 07/10/25 History mcg tablet (Vitamin B-12) fluticasone propionate 100 1 inh inhalation BID 07/03/25 07/10/25 History mcg/actuation blister powder for inhalation primidone 50 mg tablet 100 mg PO BID essential tremors 07/03/25 07/10/25 History vibegron 75 mg tablet (Gemtesa) 75 mg PO 1500 07/03/25 07/10/25 History benzocaine 15 mg-menthol 3.6 mg 1 cyrus buccal Q6H PRN sore throat 07/13/25 Rx lozenges (Cepacol Sore Throat #16 ea (benzocaine-menthol)) guaifenesin 600 mg tablet, 600 mg PO Q12 PRN cough #30 tabs 07/13/25 Rx extended release 12 hr (Mucinex) polyethylene glycol 3350 17 gram 17 g PO DAILY PRN constipation #14 07/13/25 Rx oral powder packet (Miralax) ea Patient History Medical History Carotid artery stenosis Polycythemia Per records Pre-diabetes Prediabetes vs borderline DM per records Most recent A1C 6.2% 01/2025 Nocturia Urge and stress incontinence Sleep apnea CPAP ("I do not wear is like I should") History of restless legs syndrome No current issues Hx of irritable bowel syndrome "Resolved" No recent issues Hypertension Hyperlipidemia Glaucoma No medications Chronic back pain Osteoarthritis Generalized arthritis Fibromyalgia Benign essential tremor Asthma "Well controlled" Anxiety Hx of gastric ulcer (2021) Surgical History S/P epidural steroid injection H/O esophagogastroduodenoscopy Hx of colonoscopy Status post tubal ligation Status post cholecystectomy Status post surgery Bile duct stone removal Family History Father Cardiac disorder Myocardial infarction Hypertension Sister Ovarian cancer Breast cancer Brother Diabetes Arthritis Cardiac disorder Myocardial infarction Hypertension Mother Diabetes Kidney disease Breast cancer Sister Diabetes Sister Bladder cancer Brother Bile duct cancer Brother , d/t COVID Nov 2020 Dementia Brother Coronary heart disease S/P CABG (coronary artery bypass graft) Other Bladder carcinoma No family history of adverse response to anesthesia Social History Smoking Status: Current every day smoker Tobacco Type: Cigarettes Age Started Using Tobacco: 28; packs per day: 1; Cigarettes Per Day: 1 ppd; Second Hand Exposure: No; Do You Dip or Chew Tobacco: No; Hx Alcohol Use: No Hx Substance Use: No Preferred Language: Korean Communication Ability: Effective Visual Impairment: No Limitations Hearing Ability: Normal Demand Planning Manager Required: No Beliefs That Will Affect Care: None marital status: Single Current Living Situation: Family Current Living Situation Comment: lives with son current occupational status: retired How many Children do You have: 2 Feels Safe at Home: Yes Childhood Exposure to Second-Hand Smoke: No Diet: regular Diet Comment: Regular caffeine: Yes (1 cup coffee in the morning) during the past year weight has: remained stable Dental Care, Regularly: No Physical Activity Frequency: Does not Exercise Physical Activity Frequency Comment: BACK PAIN Seatbelt Use: always Sunscreen Use: Yes Assistive Devices: Cane and CPAP Review of Systems Review of Systems: See HPI above Physical Exam Physical Exam: General: no acute distress; sitting upright in her chair watching TV; non-toxic appearing; well-nourished; cooperative; SpO2 94% on 3L NC HEENT: normocephalic, atraumatic; no scleral icterus; PERRLA w/ EOMs intact; vision and hearing grossly intact Neck: supple; no lymphadenopathy; trachea midline Skin: warm, dry without signs of tenting; no cyanosis; no rashes, bruising, lesions, or erythema noted CV: chest wall NTP; RRR; S1/S2 normal; no murmurs/rubs/gallops; pulses intact and symmetric at radial, DP, and PT Lungs: no acute respiratory distress; symmetrical chest wall expansion; clear breath sounds across all lung vergara w/o adventitious sounds; no wheezing ABD: Soft, NTP; BS present; no rebound/guarding; no distention MSK: no tics or fasciculations; no edema noted in the LEs b/l, nonerythematous Neuro: A&Ox3; normal mood and affect; fluent speech; no focal deficits; sensation grossly intact in the LEs b/l Results & Data Results & Data Vital Signs (Past 12 Hours) Vital Signs Temp Pulse Pulse Resp BP Pulse Ox O2 Del Method 07/12/25 07:20 62 07/12/25 07:14 36.9 C 63 18 124/64 94 Nasal Cannula 07/12/25 04:00 36.8 C 64 18 127/78 95 Nasal Cannula 07/12/25 01:02 65 07/12/25 00:00 65 07/12/25 00:00 36.8 C 73 18 145/73 H 96 Nasal Cannula 07/11/25 23:31 65 07/11/25 22:59 Nasal Cannula O2 Flow Rate 07/12/25 07:20 07/12/25 07:14 3 07/12/25 04:00 3 07/12/25 01:02 07/12/25 00:00 07/12/25 00:00 3 07/11/25 23:31 07/11/25 22:59 3 PG Care Time/CCT Total # of Minutes Spent Total Time Spent with Patient: Total time spent is greater than 50% in coordination of care (as documented) at patient's floor/unit and/or counseling patient: Coding [place] [address] IN/OBS CONSULT LVL 4,60M Patient Type Established Medical Decision Making High Complexity Diagnoses Stenosis of right carotid artery I65.21 Respiratory insufficiency R06.89 Asthma J45.909 Sore throat J02.9
[2025-07-12] MEDS ORDERED: DEXTROSE 50% 50 ML SYRINGE IV PRN (11:14)
[2025-07-12] MEDS ORDERED: GLUCAGON FOR INJ 1 MG VIAL SQ PRN (11:14)
[2025-07-12] MEDS ORDERED: CARBOHYDRATES FOR HYPOGLYCEMIA PO PRN (11:14)
[2025-07-12] MEDS ORDERED: GLUCOSE 10 TAB/TUBE PO PRN (11:14)
[2025-07-12] MEDS ORDERED: GLUCOSE 40% GEL 15 GM TUBE PO PRN (11:14)
[2025-07-12] MEDS ORDERED: ALBUT/IPRATROP 3MG/0.5MG NEB 3 ML VIAL NEB PRN (11:18)
[2025-07-12] MEDS: COUGH DROP (SUGAR FREE) LOZ 24 LOZ/1 BOX BUCCAL STA (11:34)
--- NOTE | 2025-07-12 11:35 | XRay Report ---
XR chest 1V portable CLINICAL HISTORY: Hypoxia, respiratory insufficiency COMPARISON STUDY: 06/20/2025 FINDINGS: The heart is mildly enlarged. There is mild elevation of interstitium. Subtle airspace opac ities present the right lung base. There are no significant pleural effusions. IMPRESSION: 1. Mild elevation of interstitium, likely representing either mild interstitial edema or interstitial inflammatory process 2. Subtle right basilar airspace opacities. Diagnostic considerations include focal edema versus atel ectasis versus an inflammatory process. ACT 112: Negative or not required by law. Electronically signed by: Franklin Nelson M.D. 07/12/2025 11:34 AM
[2025-07-12] MEDS: POLYETHYLENE (MIRALAX) 17 GM PACK PO SCH (11:36)
[2025-07-12 12:00] LABS: Hematocrit (blood only) 39.4 % (37.0-47.0); Hemoglobin 13.5 g/dl (12.0-16.0); Immature Granulocytes # (auto) 0.09 K/uL (0.01-0.20); Immature Granulocytes % (auto) 0.6 %; Mean Corpuscular Hemoglobin 30.5 pg (25.0-34.0); Mean Corpuscular Volume 89.1 fL (80.0-100.0); Platelet Count 138 K/uL (130-400); RDW Standard Deviation 44.1 fL (36.4-46.3); Red Blood Count 4.42 M/uL (4.20-5.40); White Blood Count 14.42 K/ul (4.8-10.8)
[2025-07-12 12:20] LABS: Alanine Aminotransferase 8.0 U/L (7-52); Albumin Globulin Ratio 0.9 (0.9-2); Alkaline Phosphatase 44.0 U/L (34-104); Anion Gap 6.0 (3-11); Bilirubin,Total 0.5 mg/dl (0.2-1.0); Blood Urea Nitrogen 14.0 mg/dl (6-23); Calcium 9.0 mg/dl (8.6-10.3); Carbon Dioxide 25.0 mmol/L (21-32); Chloride 105.0 mmol/L (98-107); Creatinine Clr Calc Pharmacy 90.3 ml/min; Globulin 3.4 gm/dl (2.5-4.0); Glucose 171.0 mg/dl (70-99(Fasting)); Magnesium 1.6 mg/dl (1.7-2.4); Potassium 3.5 mmol/L (3.5-5.1); Sodium 136.0 mmol/L (136-145); Total Protein 6.6 gm/dl (6.0-8.3)
--- NOTE | 2025-07-12 12:32 | Surgery Progress Note ---
Date of Service July 12, 2025 Assessment & Plan (1) Stenosis of right carotid artery: Plan: Patient POD 2 from a right tcar. She seems to be stronger and more energetic today. PT\OT ordered. She may need rehab for a short period of time. Hospitalist input appreciated. Admission and Anticipated Discharge Date Admission Date: July 10, 2025 Subjective Patient claims her throat feeling better. Less incisional pain. Feeling stronger. She was able to walk to the bathroom with a walker. Physical Exam Constitutional: WD/WN, vitals as above Neck: trachea midline Respiratory: normal respiratory effort; no respiratory distress Cardiovascular: Rate/Rhythm: regular rate and regular rhythm Skin: + incision (with moderate swelling) Neurologic: CN's II-XI intact bilaterally and moves all extremities Results & Data Vital Signs (Past 12 Hours) Vital Signs Temp Pulse Pulse Resp BP Pulse Ox O2 Del Method 07/12/25 10:42 36.6 C 70 18 125/76 93 Room Air 07/12/25 09:59 Nasal Cannula 07/12/25 07:20 62 07/12/25 07:14 36.9 C 63 18 124/64 94 Nasal Cannula 07/12/25 04:00 36.8 C 64 18 127/78 95 Nasal Cannula 07/12/25 01:02 65 O2 Flow Rate 07/12/25 10:42 07/12/25 09:59 3 07/12/25 07:20 07/12/25 07:14 3 07/12/25 04:00 3 07/12/25 01:02
[2025-07-12] MEDS: COUGH DROP (SUGAR FREE) LOZ 24 LOZ/1 BOX BUCCAL PRN (15:35)
[2025-07-12] MEDS: MAGNESIUM SULFATE / D5W 1 GM/100 ML BAG IV ONE (15:36)
[2025-07-12] MEDS: ALBUT/IPRATROP 3MG/0.5MG NEB 3 ML VIAL NEB SCH (19:59)
[2025-07-12] MEDS: guaiFENesin 600 MG TABCR PO SCH (21:27)
[2025-07-13] MEDS: MAGNESIUM SULFATE / D5W 1 GM/100 ML BAG IV SCH (05:08)
[2025-07-13 07:34] VITALS: RESP 18
--- NOTE | 2025-07-13 08:22 | Hospitalist Progress Note ---
"Date of Service July 13, 2025 Assessment & Plan (1) Stenosis of right carotid artery: (2) Respiratory insufficiency: (3) Asthma: (4) Sore throat: Plan #S/p right TCAR on 07/10/2022 Perioperative antibiotics, fluids, DVT PPx, and pain control per the primary team Added on MiraLAX for bowel regimen in the setting of opioid use Continue docusate sodium BID Continue Plavix + aspirin #Respiratory insufficiency | asthma | current everyday tobacco cigarette smoker Patient is not on supplemental oxygen at baseline, but does use a CPAP at night H/o tobacco cigarette use x 30 years; 1 PPD Last PFTs were on 05/26/2023 Mild restrictive ventilatory defect; suggestive of small airway disease; ?Bronchial asthma Patient continues to require supplemental oxygen now on POD #2 Suspect there may be a component of COPD in the setting of chronic tobacco use Duoneb 3 mL QIDR Guaifenesin 600 mg p.o. BID IS, flutter valve CXR revealed focal edema versus inflammatory process; ? Component of CHF No echocardiogram on file If no improvement with the above remedies, could trial lasix 20mg IV x 1 #Sore throat | pain with swollen Suspected secondary to intubation for surgery Menthol lozenges PRN #Diabetes Last A1c 6.2% on 01/30/2025 Not currently on diabetic medications at home Diet controlled T2DM diet BSG ACHS Added on hypoglycemia meds PRN Adjust regimen as needed #Chronic LBP Currently on gabapentin and Percocet May need to wean down on these medications as suspect they may be contributing to respiratory depression #History of urge/stress incontinence Continue vibegron External catheter (PureWick) #Parkinsonisms Continue primidone BID #Sleep apnea CPAP HS #HTN Continue lisinopril #HLD Continue simvastatin Thank you for allowing us to participate in the care of this patient, please reach out any questions or concerns; we will continue to follow. Admission and Anticipated Discharge Date Admission Date: July 10, 2025 Review of Systems Review of Systems: See HPI above Physical Exam Physical Exam: General: no acute distress; sitting upright in her chair watching TV; non-toxic appearing; well-nourished; cooperative; SpO2 92% on RA HEENT: normocephalic, atraumatic; no scleral icterus; PERRLA w/ EOMs intact; vision and hearing grossly intact Neck: supple; no lymphadenopathy; trachea midline Skin: warm, dry without signs of tenting; no cyanosis; no rashes, bruising, lesions, or erythema noted CV: chest wall NTP; RRR; S1/S2 normal; no murmurs/rubs/gallops; pulses intact and symmetric at radial, DP, and PT Lungs: no acute respiratory distress; symmetrical chest wall expansion; clear breath sounds across all lung vergara w/o adventitious sounds; no wheezing ABD: Soft, NTP; BS present; no rebound/guarding; no distention MSK: no tics or fasciculations; no edema noted in the LEs b/l, nonerythematous Neuro: A&Ox3; normal mood and affect; fluent speech; no focal deficits; sensation grossly intact in the LEs b/l Results & Data Results & Data Vital Signs (Past 12 Hours) Vital Signs Temp Pulse Pulse Resp BP BP Pulse Ox 07/13/25 07:33 36.8 C 66 18 140/72 92 07/13/25 07:23 70 16 94 07/13/25 07:04 68 07/13/25 04:00 37.0 C 83 16 144/80 H 93 07/13/25 02:24 73 15 96 07/12/25 23:09 36.8 C 79 14 137/69 96 07/12/25 23:04 77 17 92 07/12/25 21:00 O2 Del Method O2 Flow Rate 07/13/25 07:33 Room Air 07/13/25 07:23 Room Air 07/13/25 07:04 07/13/25 04:00 CPAP 2 07/13/25 02:24 07/12/25 23:09 Nasal Cannula 2 07/12/25 23:04 1 07/12/25 21:00 Nasal Cannula 1 PG Care Time/CCT Total # of Minutes Spent Total Time Spent with Patient: Total time spent is greater than 50% in coordination of care (as documented) at patient's floor/unit and/or counseling patient: Coding [place] [address] SUB INP/OBS CARE 2/35MIN Patient Type Established Medical Decision Making Moderate Complexity Diagnoses Stenosis of right carotid artery I65.21 Respiratory insufficiency R06.89 Asthma J45.909 Sore throat J02.9"
--- NOTE | 2025-07-13 09:04 | Surgery Progress Note ---
Date of Service July 13, 2025 Assessment & Plan (1) Stenosis of right carotid artery: Plan: Patient is POD 3 from a right tcar. She is doing much better. Now on room air. Still has moderate amount of generalized weakness but getting stronger every day. Would like to send to inpatient rehab for strengthening. Can go at any time from sugery standpoint. I will be away for the next 10days and will transfer service to Dr. Smith from [facility] hospitalist. He is agreeable. Admission and Anticipated Discharge Date Admission Date: July 10, 2025 Subjective Patient feels much better today. Able to get up and walk to bathroom with a walker. Denies any focal deficits Physical Exam Constitutional: WD/WN, vitals as above Neck: trachea midline Respiratory: normal respiratory effort; no respiratory distress 92% on room air Cardiovascular: Rate/Rhythm: regular rate and regular rhythm Skin: + incision (dry and clean with resolved swelling) Neurologic: CN's II-XI intact bilaterally and moves all extremities Psychiatric: A+Ox3, euthymic affect Results & Data Vital Signs (Past 12 Hours) Vital Signs Temp Pulse Pulse Resp BP BP Pulse Ox 07/13/25 08:46 07/13/25 07:33 36.8 C 66 18 140/72 92 07/13/25 07:23 70 16 94 07/13/25 07:04 68 07/13/25 04:00 37.0 C 83 16 144/80 H 93 07/13/25 02:24 73 15 96 07/12/25 23:09 36.8 C 79 14 137/69 96 07/12/25 23:04 77 17 92 07/12/25 21:00 O2 Del Method O2 Flow Rate 07/13/25 08:46 Room Air 07/13/25 07:33 Room Air 07/13/25 07:23 Room Air 07/13/25 07:04 07/13/25 04:00 CPAP 2 07/13/25 02:24 07/12/25 23:09 Nasal Cannula 2 07/12/25 23:04 1 07/12/25 21:00 Nasal Cannula 1
[2025-07-13 10:10] VITALS: O2SAT 91
[2025-07-13 11:32] VITALS: BP 131/80; TEMP 98.4
--- NOTE | 2025-07-13 11:39 | Discharge Summary ---
"Discharge Summary Date of Service July 13, 2025 Principal Dx & Hospital Course #1 = Principal Diagnosis (1) Stenosis of right carotid artery: (2) Respiratory insufficiency: (3) Acute pulmonary insufficiency following nonthoracic surgery: (4) Asthma: (5) Sore throat: Plan This patient is a 70-year-old female who was hospitalized for a right TCAR with Dr. Foote on 07/10. Patient was transferred over to the hospital medicine service on 07/13, as Dr. Foote was unavailable this weekend. However, alerted by case management on 07/13 [facility] Per vascular surgery, patient is stable to go from a surgery standpoint. Day of discharge 07/13: VSS; SpO2 91% on room air. Patient reports she feels much better today compared to yesterday. She still having a little bit of pain with swallowing, but it is much better with the menthol lozenges. She also reports that the nebulizers have been working to help with her breathing. She did use her CPAP last night, and got good sleep until 3 AM, when she had to wake up and use the bathroom; when she returned from the bathroom she was unable to get the CPAP back on. Patient ambulates with a cane at home when she goes out for groceries; she also reports she does have a walker with a seat at home. She denies any pain at this time, except for mild tenderness to palpation around the incision site. Overall, she feels [facility] Discussed case with patient's son (Jordon) at bedside and provided updates. He was appreciative of conversation, and is on board for transfer to rehab today. He reports [facility] ROS: Patient endorses mild chest/neck tenderness around the incision site. Patient denies fever, chills, night sweats, headaches, difficulty swallowing, pain with swallowing, chest pain, SOB, cough, abdominal pain, N/V/D, changes in urinary bowel habits, or numbness / tingling in the arms or legs. #S/p right TCAR on 07/10/2025 Perioperative antibiotics, fluids, DVT PPx, and pain control per the primary team MiraLAX PRN for bowel regimen in the setting of opioid use Continue docusate sodium BID Continue Plavix + aspirin #Acute pulmonary insufficiency following non-thoracic surgery (resolved) | asthma | current everyday tobacco cigarette smoker Patient is not on supplemental oxygen at baseline, but does use a CPAP at night H/o tobacco cigarette use x 30 years; 1 PPD Last PFTs were on 05/26/2023 Mild restrictive ventilatory defect; suggestive of small airway disease; ?Bronchial asthma Patient required supplemental oxygen for 2 days after the procedure, however she is back on room air on 07/13 Suspect there may be a component of COPD in the setting of chronic tobacco use Continue Guaifenesin 600 mg p.o. BID PRN upon discharge IS, flutter valve CXR revealed focal edema versus inflammatory process; ? Component of CHF No echocardiogram on file Patient exhibited improvement with the above remedies However, if refractory to encompass, could trial lasix 20mg IV x 1 #Sore throat | pain with swollen Suspected secondary to intubation for surgery Menthol lozenges PRN upon discharge #Diabetes Last A1c 6.2% on 01/30/2025 Not currently on diabetic medications at home Diet controlled T2DM diet BSG ACHS Added on hypoglycemia meds PRN Adjust regimen as needed #Chronic LBP Continue gabapentin per #History of urge/stress incontinence Continue vibegron #Parkinsonisms Continue primidone BID #Sleep apnea CPAP HS #HTN Continue lisinopril #HLD Continue simvastatin [facility]: [facility] Admission HPI Per Admitting Provider I had the pleasure of seeing Penelope today for evaluation of her carotid disease. As you know she is a 70-year-old female who was having a thumping sound in her right ear. She subsequently had an ultrasound of her carotids which showed a greater than 70% narrowing of her right internal carotid artery. She denies any symptoms of cerebrovascular sufficiency. She denies any symptoms of TIAs or CVAs. She also denies any amaurosis fugax. She does have a history of heart disease hypertension diabetes. She is a smoker of 40 years of 1 pack a day. Admission Exam Per Admitting Provider Physical exam she is awake alert and oriented x 3. She does have a significant intention tremor. Her blood pressure is 120/66 on the left and 122/72 on the right. She is in no apparent distress. Her radial and carotids are +2 bilaterally. Cannot appreciate carotid bruits. Her lungs have distant breath sounds. Heart irregular rate rhythm. Radials and carotids are +2 bilaterally. Abdominal exam benign cannot appreciate an aortic pulsation due to body habitus. Femorals are +2 bilaterally. Pedal's are +1 bilaterally. Her capillary refill is normal. Neurologic exam is intact. Discharge Exam General: no acute distress; sitting upright in her chair watching TV; son at bedside; non-toxic appearing; well-nourished; cooperative; SpO2 92% on RA HEENT: normocephalic, atraumatic; no scleral icterus; PERRLA w/ EOMs intact; vision and hearing intact Neck: supple; trachea midline; mild swelling around the incision site on the right lateral neck/chest wall; surgical site is mildly TTP Skin: warm, dry without signs of tenting; no cyanosis; no rashes, bruising, lesions, or erythema noted CV: chest wall NTP; RRR; S1/S2 normal; no murmurs/rubs/gallops; pulses intact and symmetric at radial, DP, and PT Lungs: no acute respiratory distress; symmetrical chest wall expansion; clear breath sounds across all lung vergara w/o adventitious sounds; no wheezing ABD: Soft, NTP; BS present; no rebound/guarding; no distention MSK: Resting tremor in the right hand at baseline; no edema noted in the LEs b/l, nonerythematous; patient demonstrates ability to plantarflex/dorsiflex against resistance with 5/5 strength bilateral Neuro: A&Ox3; normal mood and affect; fluent speech; no focal deficits; patient reports sensation is intact and symmetric in the upper and the lower extremities bilaterally assessed via light touch Discharge Plan Discharge Items Patient Disposition: Transfer Inpatient Rehab Fac Reason For Visit: Right Internal Carotid Artery Discharge Diagnosis: Right internal carotid artery stenosis Activity: Per Instructions section Non-emergency contact: Surgeon Call non-emergency contact if: your temperature is above 101.5, your wound has increased redness, your wound has increased drainage and your wound pain has increased Follow-up/Referrals: Kaylyn Edmondson DO [Primary Care Provider] - Diet: Heart Healthy Addtl Attending Provider Instructions: SPECIAL CARE INSTRUCTIONS: Diet: * You may return to previous diet. Medications: * Continue to take Aspirin, plavix, and statin as directed. Incision Care: * You may shower, but do not rub incision. You may let the warm soapy water run over it. Be sure to dry the incision well after bathing. * Do not shave directly over the incision until it is healed. * DO NOT IMMERSE THE INCISION IN A TUB/POOL/etc. UNTIL HEALED. Restrictions: * Do not drive for at least one week or if you are still taking any narcotic pain medication. * Do not lift anything heavier than a gallon of milk for one week after going home. Possible Complications: * Numbness - It is normal to have some numbness around the incision. Numbness can extend beyond the incision to areas of the neck, ear and face. The numbness is due to bruising of nerves during the surgery and will gradually improve over a period of months. * Hoarseness/Difficulty Speaking and Swallowing - The bruising of nerves in the neck can also cause a hoarse voice, difficulty speaking or swallowing. This may improve over time, HOWEVER, if it continues for more than a few days please contact our office ([phone]). * Excessive Swelling - There will be some swelling immediately after surgery which usually resolves within one week. If you notice that the swelling is getting worse, notify your surgeon ([phone]). * Drainage/Bleeding - If there is any drainage or bleeding, it should be a very small amount (less than a teaspoon per day). If you have excessive bleeding or drainage from the incision, call your surgeon ([phone]) right away. ACTIVATION OF EMERGENCY MEDICAL SYSTEM: Call 911, immediately, if you experience any of the following: Warning Signs and Symptoms of Stroke: * Sudden numbness or weakness of the face, arm or leg, especially on one side of the body * Sudden confusion, trouble speaking or understanding * Sudden trouble seeing in one or both eyes * Sudden trouble walking, dizziness, loss of balance or coordination * Sudden severe headache with no cause Do not delay calling 911 if you experience any warning signs or symptoms of a stroke. Delay in seeking medical attention may affect what treatments can be given to you. Risk Factors for Stroke: You can reduce your chances of stroke by working with your medical provider to adopt a healthy lifestyle. Some specific ways to lower your chance of stroke are: * If you are a smoker, now is the time to stop smoking cigarettes * If you are diabetic, improve the control of your blood sugars * Avoid excessive amounts of alcohol * Control high blood pressure * Lose weight if you are overweight * Be sure to lead an active lifestyle * Eat a healthy diet low in salt, cholesterol and fat You should know about other risk factors for stroke that you are unable to control. These include: * Age 55 years or older * Male gender * Certain racial groups: , or / * Family History of Stroke, Mini stroke or Heart Attack * Sickle Cell Disease You will be receiving a call from the Vascular Surgery Nurse after you are discharged. FOLLOW UP VISIT: It is important for you to keep your follow up appointments with your medical provider. Keep any scheduled doctor appointments. Call [phone] to schedule a follow up appointment if one not already scheduled. Addtl Large Animal Veterinarian Provider Instructions: Additional PRN prescriptions upon discharge: - MiraLAX 17 g powder to be used daily as needed for constipation - Guaifenesin 600 mg tablets every 12 hours as needed for cough - Cepacol lozenges every 6 hours as needed for sore throat Pending Studies at Discharge: No Stand-Alone Forms: [facility] Skilled Items Patient informed of condition?: Yes DNR: No Discharge Level of Care: Acute rehab Communicable Disease: No Discharge Prognosis: Improving Lines: None Urinary Catheter: No Medications and DC Order Prescriptions: New Cepacol Sore Throat (susie-men) 15-3.6 mg Lozenge 1 cyrus buccal Q6H PRN (Reason: sore throat) Qty: 16 0RF Rx Instructions: Use 1 lozenge every 6 hours as needed for throat polyethylene glycol 3350 [Miralax] 17 gram Powder In Packet 17 g PO DAILY PRN (Reason: constipation) Qty: 14 0RF Rx Instructions: Use 1 packet in the morning as needed for constipation guaifenesin [Mucinex] 600 mg Tablet Extended Release 12hr 600 mg PO Q12 PRN (Reason: cough) Qty: 30 0RF Rx Instructions: Take 1 tablet by mouth every 12 hours as needed for Continued fluticasone propionate 50 mcg/actuation spray,suspension 2 spray intranasal DAILY PRN (Reason: allergy symptoms) Qty: 16 5RF simvastatin 20 mg tablet 20 mg PO HS Qty: 90 1RF gabapentin 300 mg capsule 300 mg PO HS Qty: 90 2RF docusate sodium [Colace] 100 mg capsule 100 mg PO BID Qty: 60 3RF lisinopril 20 mg tablet 20 mg PO HS Qty: 90 1RF multivitamin [Daily Multiple] tablet 1 tab PO QAM aspirin 81 mg tablet 81 mg PO HS loratadine [Claritin] 10 mg tablet 10 mg PO DAILY PRN (Reason: allergy symptoms) Qty: 90 1RF albuterol sulfate 90 mcg/actuation HFA aerosol inhaler 1 puff inhalation .COMPLEX PRN (Reason: shortness of breath) Qty: 18 4RF Rx Instructions: 1 puff inhalation inhale 1-2 puffs PRN; sennosides [senna] 8.6 mg tablet 8.6 mg PO BID Qty: 60 5RF hydrocodone-acetaminophen 5-325 mg tablet 1 tab PO TID PRN (Reason: Pain) Rx Instructions: allowed to take up to TID primidone 50 mg tablet 100 mg PO BID Rx Instructions: 100 mg orally take 1.5 tablets bid for 5 days then take 2 tabs bid thereafter; Gemtesa 75 mg tablet 75 mg PO 1500 clopidogrel [Plavix] 75 mg Tablet 75 mg PO QAM Patient Comments: started by Dr Foote (in Mid-May s/p preop surgeon's appt) for upcoming surgery cyanocobalamin (vitamin B-12) [Vitamin B-12] 500 mcg Tablet 500 mcg PO QAM fluticasone propionate 100 mcg/actuation Blister With Device 1 inh INHALATION BID Discharge Orders: Discharge Order (Routine); Ordered 07/13/25 Ordered By: Duke Rivas Admission Data Admit Date/Time: 07/10/25 10:03 Attending Provider: Desmond Smith Admit Provider: Bebeto Foote Primary Care Provider: Kaylyn Edmondson Other Providers: Tony Castano; Anson Lamar; Tj Mcfadden; Brooklynn Devries; Judd Jaimes; Dee Buchanan; Luis Steinberg; Deborah Cook; Desmond Smith; [facility] Other Interventions: Discharge Summary Assessment (RN) Last Done: 07/13/25 14:48 Hospital Stay Data Consultations 07/10/25 14:45 Consult Spa Therapist Routine 07/12/25 09:42 Consult Hospitalist Routine Procedures Performed Operation Date: 07/10/25 10:30 Actual Procedures p Right Transcarotid Artery Revascularization, Ultrasound Localization of Femoral Vein(Right) - Bebeto Foote MD Diagnostic Imagining Performed 07/10/25 07:33 EV angio carotid cerv RT Routine US EV guide vascular access Routine Pending Results Patient Have Any Pending Studies at Discharge: No Discharge Instructions Given to Patient (Per Discharging Provider) SPECIAL CARE INSTRUCTIONS: Diet: * You may return to previous diet. Medications: * Continue to take Aspirin, plavix, and statin as directed. Incision Care: * You may shower, but do not rub incision. You may let the warm soapy water run over it. Be sure to dry the incision well after bathing. * Do not shave directly over the incision until it is healed. * DO NOT IMMERSE THE INCISION IN A TUB/POOL/etc. UNTIL HEALED. Restrictions: * Do not drive for at least one week or if you are still taking any narcotic pain medication. * Do not lift anything heavier than a gallon of milk for one week after going home. Possible Complications: * Numbness - It is normal to have some numbness around the incision. Numbness can extend beyond the incision to areas of the neck, ear and face. The numbness is due to bruising of nerves during the surgery and will gradually improve over a period of months. * Hoarseness/Difficulty Speaking and Swallowing - The bruising of nerves in the neck can also cause a hoarse voice, difficulty speaking or swallowing. This may improve over time, HOWEVER, if it continues for more than a few days please contact our office ([phone]). * Excessive Swelling - There will be some swelling immediately after surgery which usually resolves within one week. If you notice that the swelling is getting worse, notify your surgeon ([phone]). * Drainage/Bleeding - If there is any drainage or bleeding, it should be a very small amount (less than a teaspoon per day). If you have excessive bleeding or drainage from the incision, call your surgeon ([phone]) right away. ACTIVATION OF EMERGENCY MEDICAL SYSTEM: Call 911, immediately, if you experience any of the following: Warning Signs and Symptoms of Stroke: * Sudden numbness or weakness of the face, arm or leg, especially on one side of the body * Sudden confusion, trouble speaking or understanding * Sudden trouble seeing in one or both eyes * Sudden trouble walking, dizziness, loss of balance or coordination * Sudden severe headache with no cause Do not delay calling 911 if you experience any warning signs or symptoms of a stroke. Delay in seeking medical attention may affect what treatments can be given to you. Risk Factors for Stroke: You can reduce your chances of stroke by working with your medical provider to adopt a healthy lifestyle. Some specific ways to lower your chance of stroke are: * If you are a smoker, now is the time to stop smoking cigarettes * If you are diabetic, improve the control of your blood sugars * Avoid excessive amounts of alcohol * Control high blood pressure * Lose weight if you are overweight * Be sure to lead an active lifestyle * Eat a healthy diet low in salt, cholesterol and fat You should know about other risk factors for stroke that you are unable to control. These include: * Age 55 years or older * Male gender * Certain racial groups: , or / * Family History of Stroke, Mini stroke or Heart Attack * Sickle Cell Disease You will be receiving a call from the Vascular Surgery Nurse after you are discharged. FOLLOW UP VISIT: It is important for you to keep your follow up appointments with your medical provider. Keep any scheduled doctor appointments. Call [phone] to schedule a follow up appointment if one not already scheduled. Total Time Total Time Spent Total Time Spent (In Minutes): 35 [place] [address] INP/OBS DISCH >30 MIN Patient Type Established History Comprehensive Exam Comprehensive Medical Decision Making Moderate Complexity Diagnoses Stenosis of right carotid artery I65.21 Respiratory insufficiency R06.89 Acute pulmonary insufficiency following nonthoracic surgery J95.2 Asthma J45.909 Sore throat J02.9"
[2025-07-13 13:49] VITALS: PULSE 78
== END 2025-07-13 15:13 | DRG 34 ==
LOC: ASU 08:59 → 1E 10:03 → 2W 07-11 17:24
PROC: EV.TCAR (2025-07-10 10:30)
DX: I65.21 Occlusion and stenosis of right carotid artery; M15.9 Polyosteoarthritis, unspecified; I10 Essential (primary) hypertension; N39.46 Mixed incontinence; Z79.82 Long term (current) use of aspirin; Y83.8 Other surgical procedures as the cause of abnormal reaction of the patient, or of later complication, without mention of misadventure at the time of the procedure; G20.C Parkinsonism, unspecified; M54.59 Other low back pain; J45.909 Unspecified asthma, uncomplicated; E78.5 Hyperlipidemia, unspecified; R13.19 Other dysphagia; F17.210 Nicotine dependence, cigarettes, uncomplicated; G25.2 Other specified forms of tremor; E11.9 Type 2 diabetes mellitus without complications; J95.2 Acute pulmonary insufficiency following nonthoracic surgery